=== PATIENT | male | born 1990 | race Caucasian/White ===

== ENCOUNTER 2024-07-25 23:41 | Emergency (ER) | payer BC, SELFPAY ==
[2024-07-25 23:52] VITALS: BP 126/80
[2024-07-26 01:38] VITALS: BMI 17.4
[2024-07-26 01:40] VITALS: BP 118/72
[2024-07-26 01:55] LABS: % Basophils 0.5 % (0-2); % Eosinophils 0.4 % (0-6); % Immature Granulocytes 0.3 % (0-0.5); % Lymphocytes 18.2 % (20.5-51.1); % Monocytes 5.8 % (1.7-9.3); % Neutrophils 74.8 % (42.2-75.2); Absolute Basophils 0.1 10^3/uL (0-0.2); Absolute Lymphocytes 1.9 10^3/uL (1.2-3.4); Absolute Monocytes 0.6 10^3/uL (0.1-0.6); Absolute Neutrophils 7.6 10^3/uL (1.4-6.5); Hematocrit 42.3 % (39.0-52.0); Hemoglobin 14.7 g/dL (13.0-18.0); Mean Corp Hgb Conc. 34.8 g/dL (33.0-37.0); Mean Corpuscular Hgb 29.3 pg (27.0-31.0); Mean Corpuscular Volume 84.4 fL (80.0-94.0); Mean Platelet Volume 9.9 fL (7.4-10.4); Nucleated Red Blood Cells % 0 % (-); Platelet Count 246 10^3/uL (130-400); Red Blood Cell Count 5.01 10^6/uL (4.70-6.10); Red Cell Dist. Width 12.5 % (11.5-14.5); White Blood Cell Count 10.2 10^3/uL (4.8-10.8)
[2024-07-26 02:00] VITALS: BP 120/65
[2024-07-26 02:04] LABS: ALT (SGPT) 25 U/L (0-50); AST (SGOT) 27 U/L (17-59); Albumin 5.3 g/dl (3.5-5.0); Alkaline Phosphatase 100 U/L (38-126); Blood Urea Nitrogen 14 mg/dl (9-20); Calcium 10.1 mg/dl (8.4-10.2); Carbon Dioxide 25 mmol/L (22-30); Chloride 104 mmol/L (98-107); Estimated Creatinine Clearance 91 ml/min; Glucose 96 mg/dl (70-99); Sodium 141 mmol/L (135-145); Total Bilirubin 0.7 mg/dl (0.2-1.3); Total Protein 7.7 g/dl (6.3-8.2); eGFR > 60.00
[2024-07-26] MEDS: ANTIVERT 25 MG PO (02:28)
[2024-07-26 03:00] VITALS: BP 110/71
[2024-07-26 03:53] VITALS: BP 113/76
--- NOTE | 2024-07-26 03:59 | ED.GENMED ---
History of Present Illness
General
Chief Complaint: Dizziness
Source: patient
Exam Limitations: none
Time Seen by Provider: 07/26/24 01:54
Nursing documentation reviewed up to this point in time: agreed with
History of Present Illness
History of Present Illness:
This is a 34-year-old gentleman with no significant past medical history save for anxiety who presents with complaints of dizziness which he describes as a sense of spinning that began yesterday evening, intermittent throughout the evening and
morning. He admits that symptoms are much worse with change in position, worse with turning his head, rolling over in bed, occasionally worse with standing. Dizziness improves with sitting or lying still.
No associated symptoms. No nausea nor vomiting, no headache, no palpitations.
No history of similar episodes in the past.
Currently feeling improved.
Past History
Past History
ED Past Medical History: Psychiatric
ED Past Surgical History: Orthopedic
Social History
Tobacco: Non-smoker
Alcohol: Occasional
Drug: None
Personal: Single
Living: alone
Employment: Employed
Family History
Family History: Other (Noncontributory)
Phy Exam
Physical Exam
Physical Exam:
GENERAL: Alert , in no apparent distress
EYE: pupils equal and reactive. Extraocular muscles intact, mild right lateral gaze nystagmus. Test of skew is negative. Anicteric
NECK: Supple, nontender, no meningismus, no significant adenopathy.
ENT: posterior pharynx is clear, oral mucosa is moist. TM clear b/l, nares patent.
CARDIAC: Regular rate and rhythm. no murmur.
LUNGS: Clear breath sounds bilaterally, no acute respiratory distress, no wheezes/rales/rhonchi
ABDOMEN: Soft, nondistended, without focal tenderness, no r/g, no cvat. normoactive BS.
NEUROLOGICAL: Alert and oriented x3, no focal neuro deficits. Gait is stewart and steady.
SKIN: Warm and dry, normal color, skin intact. No rash.
MUSCULOSKELETAL: No C/C/E. peripheral pulses are full and equal b/l. No palpable tenderness.
PSYCH: Normal and appropriate interaction.
Course
Orders/Labs/Results
Orders:
Orders
07/25/24 23:57
ECG [Electrocardiogram (*1)] Urgent
Reason for Study: Vertigo / Dizzy
EKG- Treatment ONCE
07/26/24 01:47
CMP [Comprehensive Metabolic Panel] Urgent
Complete Blood Count/With Diff Urgent
07/26/24 02:12
Meclizine [Antivert] 25 mg PO NOW STA
Abnormal Lab Results
07/26/24
01:47
Absolute Neuts (auto) 7.6 H 10^3/uL
(1.4-6.5)
Lymphocytes % 18.2 L %
(20.5-51.1)
Albumin 5.3 H g/dl
(3.5-5.0)
07/26/24 01:47
07/26/24 01:47
Vital Signs
Initial and Last Documented VS:
Initial Vital Signs
Temp Pulse Resp BP Pulse Ox
98.6 F 84 24 126/80 100
07/25/24 23:52 07/25/24 23:52 07/25/24 23:52 07/25/24 23:52 07/25/24 23:52
Last Documented Vital Signs
Temp Pulse Resp BP Pulse Ox
98.6 F 81 14 120/65 97
07/25/24 23:52 07/26/24 02:15 07/26/24 02:15 07/26/24 02:00 07/26/24 02:15
MDM/Problems Addressed
Differential Diagnosis Includes:
History and exam is consistent with benign paroxysmal positional vertigo.
Overall appears comfortable, symptoms have improved.
Will give a dose of meclizine and continue to observe.
Labs are pending.
EKG is unremarkable.
*Pulse Oximetry
Patient hypoxic: no
*EKG
Interpreted by ED Provider?: Yes
Interpretation: normal
Comparison EKG: no comparison EKG present
Rate: normal
Rhythm: sinus
[place]: normal axis
Interval: normal interval
QRS Pattern: normal QRS
Ischemia: no ischemia
*Critical Care Note
Total Time (30-74mins, 75-104mins- exclusive of procedures): Not Applicable
Update Note
Update Note:
04:00
Patient feeling well, eager to be discharged to home. No return of dizziness.
Labs are unremarkable.
Will discharge to home with prescription for meclizine for as needed return of dizziness.
Discussed importance of staying well-hydrated on a daily basis.
Avoid rapid change in position.
Follow-up with PCP for recheck.
ED Attending Note
-
Portions of this chart may have been created with voice recognition software.� Occasional wrong word or��sound alike� substitutions may have occurred due to the inherent limitations of voice recognition software.
Discharge Plan
Departure
Patient Disposition: Home (Routine Discharge)
Date of Disposition: 07/26/24
Time of Disposition: 04:00
Patient with high blood pressure during this ER visit?: No
Condition: Good
Discharge Problem:
Benign paroxysmal positional vertigo
Instructions: Vertigo (a type of dizziness)
Prescriptions:
New
meclizine 25 mg tablet
25 mg PO QID PRN (Reason: dizziness, nausea) Qty: 20 0RF
No Action
bupropion HCl 150 mg Tablet Sustained-Release 12 Hr
150 mg PO DAILY
Referrals:
Corwin Mann MD [Family Provider] - Call in 1-3 days for appt
Interventions
Interventions:
*Risk Screen - Suicide Last Done: 07/25/24 23:52
*General Assessment Last Done: 07/26/24 01:39
*Neglect/Abuse Screening Last Done: 07/25/24 23:52
*ED- Fall Risk Assessment Last Done: 07/26/24 01:38
*ED COVID-19 Vaccine History Last Done: 07/26/24 01:39
ED- Neurological Assessment Last Done: 07/26/24 01:36
ED Swallowing Screen Last Done: 07/26/24 01:37
Discharge Date and Time
Print Language: [place]
[2024-07-26 05:10] VITALS: BP 113/76
== END 2024-07-26 05:11 | disposition home or self-care (01) ==
LOC: EMR 23:41
PROVIDERS: EMERGENCY PHYSICIAN Emergency Medicine; FAMILY PHYSICIAN Family Medicine
DX: H81.10 Benign paroxysmal vertigo, unspecified ear (principal)
CPT/HCPCS: 99283; 80053; 85025; 93005